=== PATIENT | male | born 1965 | race Asian ===

== ENCOUNTER → 2020-12-15 08:40 | Outpatient (BNVA) | payer OTHER, SELFPAY | PROVIDERS: PCP Internal Medicine; Visit Provider Internal Medicine Cardiovascular Disease | DX: R07.89 Other chest pain (principal); I10 Essential (primary) hypertension; Z79.899 Other long term (current) drug therapy; Z87.891 Personal history of nicotine dependence | CPT/HCPCS: 93005; 99202 ==

== ENCOUNTER 2023-07-10 14:13 | Outpatient (AMB) | payer OTHER, SELFPAY ==
[2023-07-10 14:15] VITALS: BP 124/76; PULSE 99; BMI 25.3
--- NOTE | 2023-07-10 14:15 | A.OFFVIS_ITS ---
Intake Vital Signs 07/10/23 14:15 Height 5 ft 6 in Weight 156 lb 8.451 oz BMI 25.3 BP 124/76 Blood Pressure Location Lt brachial Position Sitting Pulse 99 Intake Visit Reasons: Chest pain Intake Note: Follow-up with ekg c/o chest pain at rest at times Hr Operations Advisor Required: No Allergies No Known Allergies Allergy (Verified 12/15/20 08:50) Medication List - Last Reconciled 07/10/23 by William Borrero MD aspirin 81 mg PO DAILY atorvastatin 20 mg PO DAILY lisinopril 10 mg PO DAILY metformin 500 mg PO DAILY metoprolol succinate ER 50 mg PO DAILY HPI HPI Comments History of Present Illness Details Nestor comes for follow-up after a long gap. He continues to have pre cordial chest discomfort not exertion related. Occasionally feels pressure in his precordial area. Thinks this might be related to gas but he is not sure. His blood pressure is generally very well controlled. His LDL is well optimized. Diabetes also as per him is under good control. About few days ago while picking wedge details from his garden when he got up he felt really weak and felt like he was going to fall. He then took 2 steps and fell down. He did not have any lightheadedness. He said does not drink enough water. FOR[facility] Medical History Hyperlipidemia Diabetes mellitus HTN (hypertension) Social History Alcohol intake: current Alcohol intake frequency: 0-2 drinks per day Alcohol type: beer and hard liquor Review of Systems Const Denies chills, Denies fatigue, Denies fever(s), Denies frequent falls, Denies weakness, Denies weight gain and Denies weight loss ENT Denies dizziness Card Denies chest pain, Denies leg edema, Denies lightheadedness, Denies palpitations, Denies dyspnea, Denies dyspnea on exertion, Denies orthopnea and Denies other (loss of consciousness) Resp Denies cough, Denies dyspnea and Denies dyspnea on exertion GI Denies hematochezia and Denies change in stool character Musc Denies abnormal gait, Denies muscle weakness, Denies numbness, Denies radiating pain into limb and Denies tingling Neuro Denies abnormal gait, Denies dizziness, Denies frequent falls, Denies numbness, Denies tingling and Denies weakness Endo Denies fatigue and Denies palpitations Physical Exam Vital Signs: Last Vital Signs Pulse 99 07/10/23 14:15 BP 124/76 07/10/23 14:15 BMI result Body Mass Index 25.3 Const General: cooperative, comfortable, no acute distress, alert and awake Nutritional Appearance: overweight Orientation/consciousness: patient oriented x3 Limitations: no limitations HEENT Head: Yes normocephalic and Yes atraumatic Neck Neck: Yes trachea midline, Yes supple and Yes no JVD Chest Chest palpation & inspection: normal inspection of the chest Resp Effort & Inspection: normal respiratory effort Auscultation: clear to auscultation bilaterally Cardio Jugular venous distension: no JVD Palpation: normal PMI Rate: regular rate Rhythm: regular rhythm Heart sounds: S1 normal heart sound present and S2 normal heart sound present GI Auscultation: normal bowel sounds Skin General skin exam: no rashes or lesions noted Neuro General: patient oriented x3 Extrem General: Yes no clubbing, cyanosis or edema Psych Appearance: grossly normal Office Procedures EKG Details: EKG shows normal sinus rhythm with normal EKG [id number], Complete Assessment & Plan Assessment & Plan (1) Chest pain: Code(s): R07.9 - Chest pain, unspecified Plan: Patient precordial chest discomfort which is not clearly exertion related. Although he has lot of risk factors for obstructive coronary artery disease. Would suggest to treadmill stress test to evaluate for myocardial ischemia. Otherwise he is encouraged to continue to participate in aggressive medical therapy. Blood pressure is currently well optimized. Lipids are very well opt imized. Diabetes under your care. He had recent episode of what appears to be orthostatic lightheadedness. Mechanism orthostatic lightheadedness was discussed advised to increase fluid intake. Also orthostatic precautions were discussed Will follow up in the clinic if need be. Thank you for allowing me to partake in his care Orders: Orders CA stress test Today R07.9 - Chest pain, unspecified Coding Level of Care Code Est Pt Level 3 (05637) Diagnoses Chest pain R07.9 CPT Codes EKG - CPT: 19644-[id number], Complete ([id number])
== END 2023-07-10 14:38 | disposition home or self-care (01) ==
PROVIDERS: PCP Internal Medicine; Visit Provider Internal Medicine Cardiovascular Disease
DX: R07.9 Chest pain, unspecified (principal)
CPT/HCPCS: 93010; 99213

== ENCOUNTER → 2023-07-10 14:13 | Outpatient (BNVA) | payer OTHER, SELFPAY | PROVIDERS: PCP Internal Medicine; Visit Provider Internal Medicine Cardiovascular Disease | DX: R07.9 Chest pain, unspecified (principal) | CPT/HCPCS: 93005; 99212 ==

== ENCOUNTER → 2023-07-26 10:19 | Outpatient (REF) | payer OTHER, SELFPAY ==
--- NOTE | 2023-07-26 10:21 | CA_ITS ---
Acquisition Time: 2023-07-26 10:32:00 Total Exercise Time: 00:07:36 Test Indications: CHEST PAIN Medications: Protocol: KIT Max HR: 157 BPM 98% of Pred: 160 BPM Max BP: 176/068 mmHG Max Work Load: 9.4 METS Exercise stress test exercise 7 min 36 sec of Kit protocol achieivng 98% MPHR,with mild SOB. no chest discomfort, without arrhythmias, with normotensive response to exercise, without EKG changes. Test reviewed with Dr. Mandujano. Referred By: William Borrero Overread By: Zina Garcia
== END ==
LOC: HO.CARD 10:19
PROVIDERS: PCP Internal Medicine; Visit Provider Internal Medicine Cardiovascular Disease
DX: R07.9 Chest pain, unspecified (principal)
CPT/HCPCS: 93017

== ENCOUNTER → 2023-07-26 10:21 | Outpatient (BNV) | payer OTHER, SELFPAY | PROVIDERS: PCP Internal Medicine; Visit Provider Nurse Practitioner | DX: R06.02 Shortness of breath (principal); R07.9 Chest pain, unspecified | CPT/HCPCS: 93016; 93018 ==